=== PATIENT | female | born 1960 | race Caucasian/White ===

== ENCOUNTER → 2017-06-19 | Outpatient (CLI) | payer MEDICARE ==
--- NOTE | 2017-06-19 16:48 | PCVCIMAG ---
APPROVED REPORT Study performed: 06/19/2017 14:09:43 EXAM: Comprehensive 2D, Doppler, and color-flow Echocardiogram Patient [facility]: [facility] BSA: 2.16 HR: 72 bpmBP: 156/92 mmHg Rhythm: NSR Risk Factors: Cardiac Risk Factors: DM Indications CVA/TIA Peripheral Edema LE edema, 2D Dimensions LVEF(%): 73.99 (>50%) IVSd: 6.74 (7-11mm)LVOT Diam: 20.73 (18-24mm) LVDd: 50.78 mm PWd: 8.91 (7-11mm)Ascending Ao: 34.10 (22-36mm) LVDs: 28.87 (25-40mm) Left Atrium: 32.91 (27-40mm) Aortic Root: 26.79 mm LV Single Plane 4CH: 59.87 % LV Single Plane 2CH: 68.48 %Rausch's LVEF: 64.18 % Biplane EF: 65.5 % Volumes Left Atrial Volume (Systole) Single Plane 4CH: 39.73 mLSingle Plane 2CH: 39.13 mL Biplane LA Volume: 41.00 mLLA ESV Index: 19.00 mL/m2 Aortic Valve AoV Peak Speedy.: 1.65 m/s AO Peak Gr.: 10.84 mmHgLVOT Max P.64 mmHg LVOT Max V: 1.29 m/s YONG Vmax: 2.64 cm2 Mitral Valve E/A Ratio: 0.9 MV Decel. Time: 296.51 ms MV E Max Speedy.: 0.62 m/s MV A Speedy.: 0.71 m/s IVRT: 114.19 ms TDI E/Lateral E': 12.40E/Medial E': 15.50 Medial E' Speedy.: 0.04 m/s Lateral E' Speedy.: 0.05 m/s Pulmonary Valve PV Peak Speedy.: 0.88 m/sPV Peak Gr.: 3.07 mmHg Pulmonary Vein P Vein S: 0.55 m/sP Vein A: 0.30 m/s P Vein D: 0.26 m/sP Vein A Dur.: 93.4 msec P Vein S/D Ratio: 2.12 Tricuspid Valve TV Vmax: 0.73 m/s Left Ventricle The left ventricle is normal size. There is normal LV segmental wall motion. There is normal left ventricular wall thickness. Left ventricular systolic function is upper normal. A mild pressure gradient is seen in the nid LV. LVEF is 65%. Transmitral Doppler flow pattern suggests impaired LV relaxation. Right Ventricle The right ventricle is normal size. The right ventricular systolic function is normal. Atria The left atrium size is normal. The right atrium size is normal. Aortic Valve Aortic valve is trileaflet. Aortic valve leaflets are mildly sclerotic but open well. No aortic regurgitation is present. There is no aortic valvular stenosis. Mitral Valve The mitral valve is normal in structure. There is no mitral valve regurgitation noted. No evidence of mitral valve stenosis. Tricuspid Valve The tricuspid valve is normal in structure. There is no tricuspid valve regurgitation noted. Pulmonic Valve The pulmonary valve is normal in structure. There is no pulmonic valvular regurgitation. Great Vessels The aortic root is normal in size. Aortic arch is not well visualized. IVC is normal in size and collapses with >50% inspiration Pericardium There is no pericardial effusion. There is no pleural effusion. <Conclusion> The left ventricle is normal size. Left ventricular systolic function is upper normal. A mild pressure gradient is seen in the nid LV. LVEF is 65%. Transmitral Doppler flow pattern suggests impaired LV relaxation. The right ventricle is normal size. The left atrium size is normal. Aortic valve is trileaflet. Aortic valve leaflets are mildly sclerotic but open well. There is no aortic valvular stenosis. There is no mitral valve regurgitation noted. There is no tricuspid valve regurgitation noted. There is no pericardial effusion.
== END | disposition home or self-care (01) ==
LOC: PCVCCLINIC 14:10
PROVIDERS: ATTEND Internal Medicine Cardiovascular Disease
DX: I63.9 Cerebral infarction, unspecified (principal); R60.0 Localized edema; I12.9 Hypertensive chronic kidney disease with stage 1 through stage 4 chronic kidney disease, or unspecified chronic kidney disease; E11.22 Type 2 diabetes mellitus with diabetic chronic kidney disease; N18.3 Chronic kidney disease, stage 3 (moderate); R06.02 Shortness of breath; F01.51 Vascular dementia, unspecified severity, with behavioral disturbance; D68.51 Activated protein C resistance; K21.9 Gastro-esophageal reflux disease without esophagitis; Z79.4 Long term (current) use of insulin; Z79.899 Other long term (current) drug therapy
CPT/HCPCS: 80061; 93005; 93306; G0463